=== PATIENT | male | born 1985 | race Caucasian/White ===

== ENCOUNTER 2017-01-15 09:11 | Day surgery (SDC) | payer OTHER ==
[~2017-01-15] VITALS: Ht 188 cm; Wt 102.1 kg
[~2017-01-15 09:11] MED LIST: FLUOXETINE HCL20 MG PO; SUBOXONE 8 MG-1 EAC2 SL; ZOFRAN ODT8 MG PO
== END 2017-01-15 11:15 | disposition home or self-care (01) ==
LOC: PAIN 09:11 → SDC 10:00 → PAIN 11:15
DX: M47.26 Other spondylosis with radiculopathy, lumbar region (principal); M51.06 Intervertebral disc disorders with myelopathy, lumbar region; Z87.891 Personal history of nicotine dependence; F41.8 Other specified anxiety disorders; F11.20 Opioid dependence, uncomplicated
CPT/HCPCS: J1030; J2250; S0020

== ENCOUNTER 2017-01-23 08:46 | Day surgery (SDC) | payer OTHER ==
[~2017-01-23] VITALS: Ht 188 cm; Wt 102.1 kg
== END 2017-01-23 10:40 | disposition home or self-care (01) ==
LOC: PAIN 08:46 → SDC 09:15 → PAIN 10:40
DX: M47.26 Other spondylosis with radiculopathy, lumbar region (principal); M51.06 Intervertebral disc disorders with myelopathy, lumbar region; F41.8 Other specified anxiety disorders; F11.20 Opioid dependence, uncomplicated; Z87.891 Personal history of nicotine dependence
CPT/HCPCS: J1030; J2250; J3010; S0020